=== PATIENT | male | born 1985 | race Caucasian/White ===

== ENCOUNTER 2021-03-06 00:53 | Emergency (ER) | payer OTHER ==
[~2021-03-06] VITALS: Ht 185.4 cm; Wt 99.8 kg
[~2021-03-06 00:53] MED LIST: ANUSOL OINTMENT24 GM RC; CELEXA20 MG; HYDROCODONE-AP1 EAC6 PO
[2021-03-06] MEDS ORDERED: PREDNISONE50 MG PO (02:09)
[2021-03-06] MEDS ORDERED: PROAIR HFA8.5 GM INH (02:09)
[2021-03-06 02:12] VITALS: BP 113/57
--- NOTE | 2021-03-06 10:15 | EKG ---
[place] [address] ELECTROCARDIOGRAM REPORT Name: SRINIVASANELIANE PRITI Room: [facility]#: [id number] Admission: 03/06/21 Attend Phys: Discharge: 03/06/21 Date of : 81 Date of Service: 03/06/21 0148 Report #: [id number] THIS REPORT FOR: //name// [facility] ED Test Date: 2021-03-06 Test Time: 01:48:18 Pat Name: ELIANE MATTSON Department: Room: Gender: Licensed Appraiser: : 1985 Requested By: Merced Seaman Order Number: [id number] MD: Sawyer Moreno Measurements Intervals [place] Rate: 73 P: 38 CA: 179 QRS: -4 QRSD: 107 T: 32 QT: 379 QTc: 418 Interpretive Statements Sinus rhythm Baseline wander in lead(s) V1 No previous ECG available for comparison Electronically Signed On 03-06-2021 10:15:02 CDT by Sawyer Moreno [email or web address] <ELECTRONICALLY SIGNED> By: James Moreno MD, [facility] 03/06/21 1015 0148 0148 James Moreno MD, [facility] /EPI
== END 2021-03-06 02:12 | disposition home or self-care (01) ==
LOC: M.ERS 00:53
DX: J06.9 Acute upper respiratory infection, unspecified (principal); Z20.822 Contact with and (suspected) exposure to COVID-19; J45.909 Unspecified asthma, uncomplicated; R07.89 Other chest pain